=== PATIENT | female | born 1980 | race Caucasian/White ===

== ENCOUNTER → 2018-05-14 | Outpatient (CLI) | payer MEDICAID ==
--- NOTE | 2018-05-14 19:32 | RADIOLOGY REPORT (SQ) ---
EXAM DESCRIPTION: MRI LUMBAR SPINE WITHOUT COMPLETED DATE/TIME: 05/14/2018 6:00 pm REASON FOR STUDY: LOW BACK PAIN M54.5 LOW BACK PAIN COMPARISON: None. TECHNIQUE: Sagittal and Axial imaging includes T1, T2, STIR and gradient echo sequences. Coronal T2/ HASTE imaging. LIMITATIONS: Some of the sequences are limited by motion artifact. This is mild. Generally good qu ality study otherwise. FINDINGS: VISUALIZED UPPER ABDOMEN: Limited evaluation. No acute or suspicious findings suggested. SEGMENTATION: No transitional anatomy. The lowest well-developed disc space is labeled L5-S1. ALIGNMENT: Scoliosis. No significant listhesis. VERTEBRAE: Intact. BONE MARROW: Normal. DISC SIGNAL: Disc height loss at L3-4. POSTERIOR ELEMENTS: No pars defect evident. HARDWARE: Dorsal rods and screws span L4-5. CORD AND CONUS: Normal in size and signal intensity. Conus at the appropriate level. SOFT TISSUES: No aortic aneurysm seen. No bulky retroperitoneal adenopathy or mass. No paraspinal mas s or fluid. L1-L2: Mild left lateral recess and left foraminal encroachment. L2-L3: Mild facet overgrowth with slight central canal narrowing overall. Minimal left foraminal emil rowing. L3-L4: Mild facet overgrowth. No significant central stenosis. Mild right foraminal narrowing. L4-L5: Operative level is without stenosis. L5-S1: No significant spinal stenosis or exit foraminal stenosis. LOWER THORACIC: Disc disease at T10-11. No humberto cord compression. Limited assessment. SACRUM: Visualized upper sacrum intact. OTHER: No other significant findings. IMPRESSION: 1. Postoperative and degenerative changes without high-grade stenosis or fracture. Scol iosis. TECHNICAL DOCUMENTATION: JOB ID: [id number] [email or web address]- All Rights Reserved Reading location - IP/workstation name: [email or web address]
== END ==
LOC: RAD 16:54
PROVIDERS: ATTEND Family Medicine
DX: M54.5 Low back pain (principal)
CPT/HCPCS: 72148

== ENCOUNTER 2019-02-18 00:38 | Emergency (ER) | payer MEDICAID ==
[2019-02-18] MEDS ORDERED: ONDANSETRON 4 MG TAB.RAPDIS PO ONE (00:43)
--- NOTE | 2019-02-18 00:44 | ER Document Report ---
ED Medical Screen (RME) - General Chief Complaint: Flank Pain Stated Complaint: FLANK PAIN Time Seen by Provider: 02/18/19 00:41 Primary Care Provider: JASWINDER BURDEN DO [Primary Care Provider] - Follow up as needed Mode of Arrival: Wheelchair Information source: Patient Notes: 38-year-old female presented to ED for left flank pain times a week. She states she is been nauseated all week but no vomiting. She states her only medical history is and back surgery. She states her doctor did a whole panel recently and everything was negative so she is not sure why she is hurting. Patient is alert oriented respirations regular and unlabored speaking in full sentences. I have greeted and performed a rapid initial assessment of this patient. A comprehensive ED assessment and evaluation of the patient, analysis of test results and completion of medical decision making process will be conducted by an additional ED providers. TRAVEL OUTSIDE OF THE [place] IN LAST 30 DAYS: No - Related Data Allergies/Adverse Reactions: No Known Allergies Allergy (Unverified 02/18/19 00:41) Doctor's Discharge - Discharge Referrals: JASWINDER BURDEN DO [Primary Care Provider] - Follow up as needed
[2019-02-18] MEDS ORDERED: OXYCODONE-ACETAMINOPHEN 5-325 MG TABLET PO ONE (01:22)
[2019-02-18 01:26] LABS: ABSOLUTE BASOPHILS # (AUTO) 0.1 10^3/uL (0.0-0.2); ABSOLUTE EOSINOPHILS # (AUTO) 0.1 10^3/uL (0.0-0.6); ABSOLUTE LYMPHOCYTES (AUTO) 3.3 10^3/uL (0.5-4.7); ABSOLUTE MONOCYTES (AUTO) 0.5 10^3/uL (0.1-1.4); ABSOLUTE NEUT (AUTO) 5.6 10^3/uL (1.7-8.2); BASOPHILS % (AUTO) 0.6 % (0-2); EOSINOPHILS % (AUTO) 1.5 % (0-6); HEMATOCRIT 39.9 % (36.0-47.0); HEMOGLOBIN 13.9 g/dL (12.0-15.5); LYMPHOCYTES % (AUTO) 34.2 % (13-45); MEAN CORPUSCULAR HEMOGLOBIN 31.1 pg (27.0-33.4); MEAN CORPUSCULAR VOLUME 89 fl (80-97); MONOCYTES % (AUTO) 5.4 % (3-13); PLATELET COUNT 291 10^3/uL (150-450); RED BLOOD COUNT 4.49 10^6/uL (3.72-5.28); RED CELL DISTRIBUTION WIDTH 13.4 % (11.5-14.0); SEGMENTED NEUTROPHILS % (AUTO) 58.3 % (42-78); TOTAL CELLS COUNTED % (AUTO) 100 %; WHITE BLOOD COUNT 9.6 10^3/uL (4.0-10.5)
[2019-02-18 01:29] LABS: APPEARANCE,URINE SLIGHTLY-CLOUDY; BILIRUBIN,URINE NEGATIVE (NEGATIVE); COLOR,URINE YELLOW; GLUCOSE, URINE NEGATIVE (NEGATIVE); KETONES,URINE NEGATIVE (NEGATIVE); LEUKOCYTE ESTERASE,URINE NEGATIVE (NEGATIVE); NITRITE,URINE NEGATIVE (NEGATIVE); PROTEIN,URINE NEGATIVE (NEGATIVE); URINE SPECIFIC GRAVITY 1.018
--- NOTE | 2019-02-18 01:37 | ER Document Report ---
ED GI/ - General Chief Complaint: Flank Pain Stated Complaint: FLANK PAIN Time Seen by Provider: 02/18/19 00:41 Primary Care Provider: JASWINDER BURDEN DO [ACTIVE STAFF] - Follow up as needed Mode of Arrival: Wheelchair Notes: Patient is a 38 year old female that comes to the Emergency Department for chief complaint of left flank pain with some radiation to the left side. Symptoms started out mild at first and have worsened. Patient has developed nausea but she denies vomiting. She denies fever/chills. She states that she seems to have some relief with urination at times but does not have dysuria. She denies vaginal bleeding or discharge. Past medical history includes C-sections and lumbar fusion, she denies numbness, she denies incontinence, she denies history of IV drug abuse. TRAVEL OUTSIDE OF THE [place] IN LAST 30 DAYS: No - Related Data Allergies/Adverse Reactions: No Known Allergies Allergy (Unverified 02/18/19 00:41) Past Medical History - General Information source: Patient - Social History Smoking Status: Never Smoker Frequency of alcohol use: None Drug Abuse: None Lives with: Family Family History: Reviewed & Not Pertinent - Medical History Medical History: Negative Surgical Hx: Negative - Immunizations Immunizations up to date: Yes Hx Diphtheria, Pertussis, Tetanus Vaccination: Yes Review of Systems - Review of Systems Constitutional: No symptoms reported EENT: No symptoms reported Cardiovascular: No symptoms reported Respiratory: No symptoms reported Gastrointestinal: No symptoms reported Genitourinary: See HPI Female Genitourinary: No symptoms reported Musculoskeletal: See HPI Skin: No symptoms reported Hematologic/Lymphatic: No symptoms reported Neurological/Psychological: No symptoms reported Physical Exam - Vital signs Vitals: Temp Pulse Resp BP Pulse Ox 99.1 F 89 18 119/70 97 02/18/19 00:43 02/18/19 00:43 02/18/19 00:43 02/18/19 00:43 02/18/19 00:43 - Notes Notes: GENERAL: Somewhat uncomfortable, sitting on the edge of the bed upright HEAD: Normocephalic, atraumatic. EYES: Pupils equal, round, and reactive to light. Extraocular movements intact. ENT: Oral mucosa moist, tongue midline. Oropharynx unremarkable. Airway patent. Nares patent, no nasal septal hematoma, TM's intact. NECK: Full range of motion. Supple. Trachea midline. LUNGS: Clear to auscultation bilaterally, no wheezes, rales, or rhonchi. No respiratory distress. HEART: Regular rate and rhythm. No murmur ABDOMEN: Soft, non-tender. Non-distended. Bowel sounds present in all 4 quadrants. GENITOURINARY: Deferred EXTREMITIES: Moves all 4 extremities spontaneously. No edema, normal radial and dorsalis pedis pulses bilaterally. No cyanosis. BACK: Tenderness along the left lumbar paraspinal musculatures down towards the gluteal area. Minimal tenderness along the thoracic area as well. No cervical, thoracic, lumbar midline tenderness. Positive straight leg raise on the left, no saddle anesthesia, normal distal neurovascular exam. NEUROLOGICAL: Alert and oriented x3. Normal speech. Cranial nerves II through XII grossly intact. PSYCH: Normal affect, normal mood. SKIN: Warm, dry, normal turgor. No rashes or lesions noted. Course - Re-evaluation Re-evalutation: Patient appears uncomfortable, has back pain on palpation, positive straight leg raise. Appears to be more musculoskeletal in origin. CBC, chemistry, urinalysis reviewed and unremarkable. Vital signs unremarkable. No history of IV drug abuse, no neurological deficits. Patient does have chronic back pain, cervical fusion history, she states that tomorrow she is supposed to be seen and have back injections because of ongoing back pain. Patient is already on Flexeril at home. As result she will be given diazepam for muscle relaxant for spasm instead. Given Toradol as well. Patient states she will follow-up tomorrow, discussed treatment, discussed return precautions in detail. Patient and significant other state understanding and agreement. - Vital Signs Vital signs: Temp Pulse Resp BP Pulse Ox 99.1 F 82 18 117/69 97 02/18/19 00:43 02/18/19 03:01 02/18/19 03:01 02/18/19 03:01 02/18/19 03:01 - Laboratory Result Diagrams: 02/18/19 01:04 02/18/19 01:04 Laboratory results interpreted by me: 02/18/19 01:04 Urine Urobilinogen 4.0 H Urine Ascorbic Acid 20 H Discharge - Discharge Clinical Impression: Flank pain Condition: Stable Disposition: HOME, SELF-CARE Additional Instructions: Your evaluation is most consistent with muscle spasm in your lower back, your laboratory work-up does not show any concerning findings. Take diazepam as prescribed as muscle relaxer, apply heat to the area, do gentle stretches, rest. Follow-up closely with your specialist for additional treatment as discussed. Return if you worsen including new numbness, accidental bowel movements, inability to urinate, fever, or any other concerning or worsening symptoms. Prescriptions: Diazepam [Valium 5 mg Tablet] 1 - 2 tab PO TID PRN #12 tablet PRN Reason: Referrals: JASWINDER BURDEN DO [ACTIVE STAFF] - Follow up as needed
[2019-02-18] MEDS ORDERED: KETOROLAC TROMETHAMINE 60 MG/2 ML SDV IM ONE (02:03)
[2019-02-18 02:04] LABS: ALANINE AMINOTRANSFERASE 37 U/L (9-52); ALBUMIN 4.4 g/dL (3.5-5.0); ALKALINE PHOSPHATASE 81 U/L (38-126); ANION GAP 8 (5-19); ASPARTATE AMINO TRANSFERASE 30 U/L (14-36); BILIRUBIN,DIRECT 0.3 mg/dL (0.0-0.4); BILIRUBIN,TOTAL 0.3 mg/dL (0.2-1.3); BLOOD UREA NITROGEN 20 mg/dL (7-20); CALCIUM 9.4 mg/dL (8.4-10.2); CARBON DIOXIDE 29 mmol/L (22-30); CHLORIDE 100 mmol/L (98-107); GLUCOSE 88 mg/dL (75-110); POTASSIUM 3.9 mmol/L (3.6-5.0); TOTAL PROTEIN 7.2 g/dL (6.3-8.2)
[2019-02-18] MEDS ORDERED: DIAZEPAM INJ 10 MG/2 ML DISP.SYRIN IM ONE (02:34)
[2019-02-18 03:02] VITALS: BP 117/69
== END 2019-02-18 03:01 | disposition home or self-care (01) ==
LOC: ER 00:38
DX: R10.9 Unspecified abdominal pain (principal)
CPT/HCPCS: 99284; 96372; 36415; 85025; 81025; 80053; 81001; J3360; J1885; S0119

== ENCOUNTER 2020-05-29 05:09 | Day surgery (SDC) | payer MEDICAID ==
[2020-05-29 05:58] LABS: ABSOLUTE EOSINOPHILS # (AUTO) 0.1 10^3/uL (0.0-0.6); ABSOLUTE LYMPHOCYTES (AUTO) 2.6 10^3/uL (0.5-4.7); ABSOLUTE MONOCYTES (AUTO) 0.7 10^3/uL (0.1-1.4); ABSOLUTE NEUT (AUTO) 11.1 10^3/uL (1.7-8.2); BASOPHILS % (AUTO) 0.2 % (0-2); EOSINOPHILS % (AUTO) 0.8 % (0-6); HEMATOCRIT 37.1 % (36.0-47.0); HEMOGLOBIN 12.7 g/dL (12.0-15.5); LYMPHOCYTES % (AUTO) 17.8 % (13-45); MEAN CORPUSCULAR HEMOGLOBIN 30.3 pg (27.0-33.4); MEAN CORPUSCULAR HGB CONC 34.1 g/dL (32.0-36.0); MEAN CORPUSCULAR VOLUME 89 fl (80-97); PLATELET COUNT 270 10^3/uL (150-450); RED BLOOD COUNT 4.18 10^6/uL (3.72-5.28); RED CELL DISTRIBUTION WIDTH 12.9 % (11.5-14.0); SEGMENTED NEUTROPHILS % (AUTO) 76.2 % (42-78); TOTAL CELLS COUNTED % (AUTO) 100 %; WHITE BLOOD COUNT 14.5 10^3/uL (4.0-10.5)
[2020-05-29 06:18] LABS: ALKALINE PHOSPHATASE 65 U/L (38-126); ANION GAP 7 (5-19); ASPARTATE AMINO TRANSFERASE 19 U/L (14-36); BILIRUBIN,TOTAL 0.7 mg/dL (0.2-1.3); BLOOD UREA NITROGEN 10 mg/dL (7-20); CALCIUM 9.1 mg/dL (8.4-10.2); CARBON DIOXIDE 27 mmol/L (22-30); CHLORIDE 99 mmol/L (98-107); GLUCOSE 124 mg/dL (75-110); POTASSIUM 3.4 mmol/L (3.6-5.0); TOTAL PROTEIN 6.8 g/dL (6.3-8.2)
[2020-05-29] MEDS ORDERED: ONDANSETRON HCL INJ/PF 4 MG/2 ML SDV IV ONE (08:09)
[2020-05-29] MEDS ORDERED: NORMAL SALINE 1000 ML 1,000 ML IV ONE (08:09)
[2020-05-29] MEDS ORDERED: RINGERS SOLUTION,LACTATED 1,000 ML IV ONE (08:10)
[2020-05-29 08:19] LABS: APPEARANCE,URINE SLIGHTLY-CLOUDY; BILIRUBIN,URINE NEGATIVE (NEGATIVE); COLOR,URINE YELLOW; GLUCOSE, URINE NEGATIVE (NEGATIVE); KETONES,URINE NEGATIVE (NEGATIVE); LEUKOCYTE ESTERASE,URINE NEGATIVE (NEGATIVE); NITRITE,URINE NEGATIVE (NEGATIVE); PROTEIN,URINE NEGATIVE (NEGATIVE); URINE SPECIFIC GRAVITY 1.015; UROBILINOGEN,URINE NEGATIVE mg/dL (<2.0)
[2020-05-29 08:33] LABS: URINE AMPHETAMINES SCREEN NEGATIVE; URINE BARBITURATES SCREEN NEGATIVE; URINE BENZODIAZEPINES SCREEN NEGATIVE; URINE COCAINE SCREEN NEGATIVE; URINE METHADONE SCREEN NEGATIVE; URINE PHENCYCLIDINE SCREEN NEGATIVE
[2020-05-29 08:36] LABS: URINE MARIJUANA (THC) SCREEN UNCONFIRMED POSITIVE
[2020-05-29] MEDS ORDERED: KETOROLAC TROMETHAMINE 60 MG/2 ML SDV ONE (08:54)
[2020-05-29] MEDS ORDERED: SUCCINYLCHOLINE CHLORIDE INJ 200 MG/10 ML VIAL ONE (08:54)
[2020-05-29] MEDS ORDERED: DEXAMETHASONE SOD PHOSPHATE INJ 4 MG/1 ML VIAL ONE (08:54)
[2020-05-29] MEDS ORDERED: ONDANSETRON HCL INJ/PF 4 MG/2 ML SDV ONE (08:54)
[2020-05-29] MEDS ORDERED: ROCURONIUM BROMIDE INJ 50 MG/5 ML VIAL IV ONE (08:54)
--- NOTE | 2020-05-29 09:54 | ER Document Report ---
Entered by SCOTT RAMIREZ SCRIBE 05/29/20 0806 Acting as scribe for:RAISSA RODRIGUEZ MD ED GI/ - General Chief Complaint: Abdominal Problem Stated Complaint: FLANK PAIN Time Seen by Provider: 05/29/20 07:48 Primary Care Provider: SALVADOR ROSARIO FNP-C [Primary Care Provider] - Follow up as needed Mode of Arrival: Ambulatory Information source: Patient Notes: This 39 year old female patient on suboxone since 2008 presents to the emergency department today with complaints of abdominal pain with associated distension since around noon yesterday. She reports she last took her suboxone at 1am this morning. Patient has had nausea without vomiting. She complaints of dysuria described as a "pulling" sensation. TRAVEL OUTSIDE OF THE [place] IN LAST 30 DAYS: No - Related Data Allergies/Adverse Reactions: No Known Allergies Allergy (Unverified 02/18/19 00:41) Home Medications: gabapentin, suboxone, flexeril, lisinopril, HCTZ Past Medical History - General Information source: Patient - Social History Smoking Status: Current Every Day Smoker Cigarette use (# per day): Yes - 1 ppd Frequency of alcohol use: Occasional Drug Abuse: None Lives with: Family Family History: Reviewed & Not Pertinent Patient has homicidal ideation: No - Past Medical History Cardiac Medical History: Reports: Hx Hypertension Pulmonary Medical History: Reports: Hx Asthma Musculoskeletal Medical History: Reports Hx Fibromyalgia Past Surgical History: Reports: Hx Section - x3, Hx Orthopedic Surgery - L4-L5 fusion in 2008 - Immunizations Immunizations up to date: Yes Hx Diphtheria, Pertussis, Tetanus Vaccination: Yes Review of Systems - Review of Systems Constitutional: See HPI, Other - last took suboxone at 1am EENT: No symptoms reported Cardiovascular: No symptoms reported Respiratory: No symptoms reported Gastrointestinal: See HPI, Abdomen distended, Abdominal pain, Nausea. denies: Vomiting Genitourinary: See HPI, Dysuria - "pulling sensation" Female Genitourinary: No symptoms reported Musculoskeletal: No symptoms reported Skin: No symptoms reported Hematologic/Lymphatic: No symptoms reported Neurological/Psychological: No symptoms reported -: Yes All other systems reviewed and negative Physical Exam - Vital signs Vitals: Temp Pulse Resp BP Pulse Ox 98.8 F 129 H 20 121/68 94 05/29/20 05:14 05/29/20 05:14 05/29/20 05:14 05/29/20 05:14 05/29/20 05:14 - HEENT Head: Normocephalic, Atraumatic Eyes: Normal Pupils: PERRL - Respiratory Respiratory status: No respiratory distress Breath sounds: Other - Coarse breath sounds with some rhonchi consistent with her smoking history. - Cardiovascular Rhythm: Regular, Tachycardia Heart sounds: Normal auscultation Murmur: No - Abdominal Inspection: Obese Distension: Distended Bowel sounds: Hypoactive Tenderness: Tender - Patient complains of diffuse tenderness, however on exam she does seem to localize in the right lower quadrant, with guarding and mild rebound. - Back Back: Tender - Extremities General upper extremity: Normal inspection General lower extremity: Normal inspection - Neurological Neuro grossly intact: Yes - Psychological Associated symptoms: Normal affect, Normal mood - Skin Skin Temperature: Warm Skin Moisture: Dry Skin Color: Normal Course - Re-evaluation Re-evalutation: 05/29/20 11:[address] scan shows acute appendicitis. Patient reports she had her last meal probably sometimes yesterday. Less oral intake she initially stated was at 2 AM, then she stated about 1 hour ago she drank a little water from the bottle of her spouse's water bottle what she describes as perhaps 30-60 mL's of water. She stated her mouth felt so dry that she had to have something. She is asking not to drink anything else. - Vital Signs Vital signs: Temp Pulse Resp BP Pulse Ox 98.4 F 99 16 101/55 L 94 05/29/20 14:50 05/29/20 14:50 05/29/20 14:50 05/29/20 14:50 05/29/20 14:50 - Laboratory Result Diagrams: 05/29/20 05:41 05/29/20 05:41 Laboratory results interpreted by me: 05/29/20 05/29/20 05:41 05:41 WBC 14.5 H Absolute Neuts (auto) 11.1 H Sodium 132.8 L Potassium 3.4 L Glucose 124 H - Diagnostic Test Radiology reviewed: Reports reviewed - CT scan abdomen pelvis shows acute appendicitis - Consults Dr. Khanna Time consulted: 11:36 Consulted provider: will come to ER Discharge - Discharge Clinical Impression: Hyponatremia, Opioid dependence on agonist therapy Acute appendicitis Qualifiers: Acute appendicitis type: with localized peritonitis Appendicitis gangrene presence: unspecified whether gangrene present Appendicitis perforation presence: without perforation Appendicitis abscess presence: without abscess Qualified Code(s): K35.30 - Acute appendicitis with localized peritonitis, without perforation or gangrene Leukocytosis Qualifiers: Leukocytosis type: unspecified Qualified Code(s): D72.829 - Elevated white blood cell count, unspecified Chronic low back pain Qualifiers: Back pain laterality: unspecified Sciatica presence: unspecified whether sciatica present Qualified Code(s): M54.5 - Low back pain Condition: Stable Disposition: ADMITTED INPATIENT Admitting Provider: Surgicalist Unit Admitted: Surgical Floor Referrals: SALVADOR ROSARIO FNP-C [Primary Care Provider] - Follow up as needed I personally performed the services described in the documentation, reviewed and edited the documentation which was dictated to the scribe in my presence, and it accurately records my words and actions.
[2020-05-29] MEDS ORDERED: PIPERACILLIN/TAZOBACTAM 3.375 GM VIAL IV ONE (09:57)
[2020-05-29] MEDS ORDERED: MORPHINE SULFATE 10 MG/ML INJ IV ONE (09:58)
--- NOTE | 2020-05-29 11:18 | RADIOLOGY REPORT (SQ) ---
EXAM DESCRIPTION: CT ABD/PELVIS WITH IV ONLY IMAGES COMPLETED DATE/TIME: 05/29/2020 10:47 am REASON FOR STUDY: RLQ abd pain, bloating, leukocytosis COMPARISON: None. TECHNIQUE: CT scan of the abdomen and pelvis performed using helical scanning technique with dynamic intravenous contrast injection. No oral contrast. Images reviewed with lung, soft tissue, and bone windows. Reconstructed coronal and sagittal MPR images reviewed. Delayed images for evaluation of the urinary system also acquired. All images stored on PACS. All CT scanners at this facility use dose modulation, iterative reconstruction, and/or weight based d osing when appropriate to reduce radiation dose to as low as reasonably achievable (ALARA). [facility]: Dose Right [facility]: CareDose [facility]: Dose Right [facility]: Teradose 4D [facility]: [employer] CONTRAST TYPE AND DOSE: contrast/concentration: Isovue 350.00 mmol/ml; Total Contrast Delivered: 100 .0 ml; Total Saline Delivered: 72.0 ml RENAL FUNCTION: BUN 10 creatinine 0.62. RADIATION DOSE: CT Rad equipment meets quality standard of care and radiation dose reduction techniq ues were employed. CTDIvol: 17.7 - 20.0 mGy. DLP: 1848 mGy-cm.. LIMITATIONS: None. FINDINGS: LOWER CHEST: No significant findings. No nodules or infiltrates. LIVER: Normal size. No masses. No dilated ducts. SPLEEN: Normal size. No focal lesions. PANCREAS: No masses. No significant calcifications. No adjacent inflammation or peripancreatic fluid collections. Pancreatic duct not dilated. GALLBLADDER: No identified stones by CT criteria. No inflammatory changes to suggest cholecystitis. ADRENAL GLANDS: No significant masses or asymmetry. RIGHT KIDNEY AND URETER: No solid masses. No significant calcifications. No hydronephrosis or hyd roureter. LEFT KIDNEY AND URETER: No solid masses. No significant calcifications. No hydronephrosis or hydr oureter. AORTA AND VESSELS: No aneurysm. No dissection. Renal arteries, SMA, celiac without stenosis. RETROPERITONEUM: No retroperitoneal adenopathy, hemorrhage or masses. BOWEL AND PERITONEAL CAVITY: No masses or inflammatory changes. No free fluid or peritoneal masses. APPENDIX: Indistinct thickened appearance. Marked inflammatory stranding in the periappendiceal soft tissues. No abnormal gas or fluid collection. PELVIS: No mass. No free fluid. Normal bladder. ABDOMINAL WALL: No masses. Lower abdominal wall midline hernia containing fat. BONES: Degenerative changes in the lumbar spine with marked scoliosis. Surgical changes and hardware . OTHER: No other significant finding. IMPRESSION: 1. ACUTE APPENDICITIS. NO EVIDENCE OF ABSCESS OR PERFORATION. 2. LOWER ABDOMINAL WALL MIDLINE HERNIA CONTAINING FAT. NO INVOLVEMENT OF BOWEL. 3. NO OTHER SIGNIFICANT OR ACUTE FINDING IN THE ABDOMEN OR PELVIS ON CT SCAN WITH IV CONTRAST. TECHNICAL DOCUMENTATION: JOB ID: [id number] Quality ID # [id number]: Final reports with documentation of one or more dose reduction techniques (e.g., Au tomated exposure control, adjustment of the mA and/or kV according to patient size, use of iterative reconstruction technique) 2010 [employer]- All Rights Reserved Reading location - IP/workstation name: [email or web address]
--- NOTE | 2020-05-29 12:30 | PDOC H&P ---
History of Present Illness Admission Date/PCP: IDA BRUSH Patient complains of: Abdominal pain History of Present Illness: QUITA FRAUSTO is a 39 year old female With long history of chronic lower back pain presenting now with 24-hour history of lower abdominal pain mostly in the right lower quadrant. Patient notes that the pain has worsened since yesterday. She denies any nausea or vomiting no diarrhea no fever. She denies any prior history of this sort of pain. Past Medical History Cardiac Medical History: Reports: Hypertension Pulmonary Medical History: Reports: Asthma Musculoskeltal Medical History: Reports: Fibromyalgia Past Surgical History Past Surgical History: Reports: Section - x3, Orthopedic Surgery - L4- L5 fusion in 2008 Social History Lives with: Family Smoking Status: Current Every Day Smoker Electronic Cigarette use?: No Frequency of Alcohol Use: None Hx Recreational Drug Use: No Hx Prescription Drug Abuse: Yes - Patient has been on Suboxone for the past 10 years Family History Family History: Reviewed & Not Pertinent Parental Family History Reviewed: Yes Children Family History Reviewed: Yes Sibling(s) Family History Reviewed.: Yes Medication/Allergy Home Medications: Diazepam [Valium 5 mg Tablet] 1 - 2 tab PO TID PRN #12 tablet 02/18/19 Allergies/Adverse Reactions: No Known Allergies Allergy (Unverified 02/18/19 00:41) Review of Systems All systems: reviewed and no additional remarkable complaints except as stated Constitutional: PRESENT: as per HPI Gastrointestinal: PRESENT: as per HPI Physical Exam Vital Signs: Temp Pulse Resp BP Pulse Ox 98.2 F 102 H 15 121/62 99 05/29/20 09:28 05/29/20 09:28 05/29/20 09:28 05/29/20 09:28 05/29/20 09:28 Intake & Output 05/28/20 05/29/20 05/30/20 06:59 06:59 06:59 Intake Total 1000 Balance 1000 Weight 105.2 kg General appearance: PRESENT: cooperative, mild distress Eye exam: PRESENT: conjunctiva pink Respiratory exam: PRESENT: clear to auscultation frank Cardiovascular exam: PRESENT: RRR GI/Abdominal exam: PRESENT: other - Obese, mild diffuse abdominal tenderness. Marked tenderness in the right lower quadrant with voluntary guarding. Sense of fullness at the midline in the lower abdomen consistent with a hernia. Neurological exam: PRESENT: alert, awake Psychiatric exam: PRESENT: agitated Skin exam: PRESENT: warm Results Laboratory Results: 05/29/20 05:41 05/29/20 05:41 05/29/20 05/29/20 05/29/20 05:41 05:41 05:41 WBC 14.5 H RBC 4.18 Hgb 12.7 Hct 37.1 MCV 89 MCH 30.3 MCHC 34.1 RDW 12.9 Plt Count 270 Seg Neutrophils % 76.2 Sodium 132.8 L Potassium 3.4 L Chloride 99 Carbon Dioxide 27 Anion Gap 7 BUN 10 Creatinine 0.62 Est GFR ( Amer) > 60 Glucose 124 H Calcium 9.1 Total Bilirubin 0.7 AST 19 Alkaline Phosphatase 65 Total Protein 6.8 Albumin 4.0 Lipase 23.9 Serum HCG, Qual NEGATIVE Urine Color Urine Appearance Urine pH Ur Specific [place] Urine Protein Urine Glucose (UA) Urine Ketones Urine Blood Urine Nitrite Ur Leukocyte Esterase Urine WBC (Auto) Urine RBC (Auto) 05/29/20 07:46 WBC RBC Hgb Hct MCV MCH MCHC RDW Plt Count Seg Neutrophils % Sodium Potassium Chloride Carbon Dioxide Anion Gap BUN Creatinine Est GFR ( Amer) Glucose Calcium Total Bilirubin AST Alkaline Phosphatase Total Protein Albumin Lipase Serum HCG, Qual Urine Color YELLOW Urine Appearance SLIGHTLY-CLOUDY Urine pH 6.0 Ur Specific [place] 1.015 Urine Protein NEGATIVE Urine Glucose (UA) NEGATIVE Urine Ketones NEGATIVE Urine Blood NEGATIVE Urine Nitrite NEGATIVE Ur Leukocyte Esterase NEGATIVE Urine WBC (Auto) 0 Urine RBC (Auto) 2 Impressions: Abdomen/Pelvis CT 05/29/20 09:56 IMPRESSION: 1. ACUTE APPENDICITIS. NO EVIDENCE OF ABSCESS OR PERFORATION. 2. LOWER ABDOMINAL WALL MIDLINE HERNIA CONTAINING FAT. NO INVOLVEMENT OF BOWEL. 3. NO OTHER SIGNIFICANT OR ACUTE FINDING IN THE ABDOMEN OR PELVIS ON CT SCAN WITH IV CONTRAST. Assessment & Plan - Diagnosis (1) Acute appendicitis Qualifiers: Acute appendicitis type: with localized peritonitis Appendicitis gangrene presence: unspecified whether gangrene present Appendicitis perforation presence: without perforation Appendicitis abscess presence: without abscess Qualified Code(s): K35.30 - Acute appendicitis with localized peritonitis, without perforation or gangrene Is this a current diagnosis for this admission?: Yes Plan: Plan laparoscopic appendectomy. Patient with incidental chronic lower midline hernia without bowel involvement which will be left alone if possible. She will need mesh repair after she has had recovery from her laparoscopic appendectomy. I have discussed with the patient the risk and benefits of the laparoscopic appendectomy including risk of mistaken diagnosis, infection, bleeding, adjacent structure injury, stump leak, possibility of a larger incision depending on the difficulty of the surgery. There is even a possibility that I will need to go through the lower midline hernia and thus require a primary repair of the hernia at the end of the case with high risk of hernia recurrence. She understands and agrees to proceed with laparoscopic appendectomy. - Time Critical Time spent with patient: 25-34 minutes Anticipated Discharge Disposition: Home, Self Care Anticipated Discharge Timeframe: within 48 hours
[2020-05-29] MEDS ORDERED: NICOTINE 7 MG/24 HR PATCH.TD24 TD ONE (13:17)
[2020-05-29] MEDS ORDERED: BUPIVACAINE HCL 0.25 % INJ/PF (2.5 MG/1 ML) 30 ML VIAL ONE (13:28)
[2020-05-29] MEDS ORDERED: NORMAL SALINE 1000 ML 1,000 ML IV PRN ×2 (16:35→18:19)
[2020-05-29] MEDS ORDERED: FENTANYL CITRATE INJ/PF 250 MCG/5 ML AMPULE ONE (16:53)
[2020-05-29] MEDS ORDERED: MIDAZOLAM 2 MG/2 ML INJ ONE (16:53)
[2020-05-29] MEDS ORDERED: MORPHINE SULFATE 10 MG/ML INJ ONE (17:20)
[2020-05-29] MEDS ORDERED: SUGAMMADEX SODIUM 200 MG/2 ML SDV IV ONE (18:00)
[2020-05-29] MEDS ORDERED: OXYCODONE-ACETAMINOPHEN 5-325 MG TABLET PO PRN ×2 (18:07)
[2020-05-29] MEDS ORDERED: MORPHINE SULFATE 10 MG/ML INJ IV PRN (18:07)
[2020-05-29] MEDS ORDERED: DIPHENHYDRAMINE HCL 50 MG/ML VIAL IV PRN (18:07)
[2020-05-29] MEDS ORDERED: MEPERIDINE HCL/PF INJ 25 MG/1 ML DISP.SYRIN IV PRN (18:07)
[2020-05-29] MEDS ORDERED: FENTANYL CITRATE INJ/PF 100 MCG/2 ML AMPUL IV PRN ×3 (18:07)
[2020-05-29] MEDS ORDERED: PROMETHAZINE HCL INJ 25 MG/1 ML VIAL IV PRN ×2 (18:07)
--- NOTE | 2020-05-29 18:18 | Operative Report ---
Operative Report DATE OF SURGERY: 05/29/20 PREOPERATIVE DIAGNOSIS: Appendicitis. POSTOPERATIVE DIAGNOSIS: Appendicitis. OPERATION: Laparoscopic appendectomy. SURGEON: MERCY ERVIN ANESTHESIA: GA TISSUE REMOVED OR ALTERED: Appendix. COMPLICATIONS: None. ESTIMATED BLOOD LOSS: 10 cc INTRAOPERATIVE FINDINGS: Markedly inflamed nonperforated appendix. Abdominal adhesions extending from the lower abdomen to the upper abdomen. PROCEDURE: Informed consent was obtained. Patient was brought to the operating room and placed on the operating room table in the supine position. After satisfactory induction of general anesthesia patient's abdomen was prepped and draped in usual sterile fashion. A supraumbilical midline incision was made and dissection carried down through the fascia and the peritoneal cavity was entered. I could feel omental adhesions in the surrounding region which was s wept aside gently to allow space for the Richardson trocar. Richardson trocar was inserted and pneumoperitoneum produced with good patient toleration. There was copious amount of midline omental adhesions extending from the lower abdomen to the upper abdomen. The apparent hernia in the lower abdomen consisting of omental herniation was noted. Two 5 mm trochars were placed in the right mid lateral abdomen. No left-sided trochars were placed due to her hernia. A incision was made at the suprapubic location for placement of a 5 mm trocar but with the adhesions I could not safely place the 5 mm trocar under direct vision therefore this site was abandoned. Inflammatory changes were noted around the ileocecal region. The ileum was swept back as was the cecum revealing appendix that was adhered to the surrounding tissue with marked inflammatory changes. But no evidence of perforation. The appendix was gently teased away from the surrounding tissues. The base of the appendix did not appear to be involved with inflammatory changes. A plane was created between the appendix and the mesoappendix at the base of the appendix taking great care to avoid injury to the cecum. The appendix was taken flush with the cecum using a Endo TERENCE stapling device. The mesoappendix was taken using a LigaSure device taking great care to avoid injury to the surrounding bowel. The appendix was placed in Endobag and removed through the Richardson trocar site fascial defect. The operative field was irrigated and irrigant aspirated out. Hemostasis appeared good. All trochars were removed under the direct vision of the laparoscope to ensure hemostasis. The Richardson trocar site fascial defect was closed with interrupted Vicryl sutures. All skin incisions were closed with subcuticular interrupted Monocryl sutures. Marcaine was injected at the port sites. Patient tolerated procedure well with no apparent complications and was taken to the recovery area in stable condition.
[2020-05-29] MEDS ORDERED: ONDANSETRON HCL INJ/PF 4 MG/2 ML SDV IV PRN (18:19)
[2020-05-29] MEDS ORDERED: ACETAMINOPHEN 1,000 MG/100 ML RTUPB IV ONE (18:26)
--- NOTE | 2020-05-29 21:17 | PDOC PROGRESS REPORT ---
Subjective Progress Note for:: 05/29/20 Subjective:: Feels much better after her surgery. Reason For Visit: APPENDICITIS Physical Exam Vital Signs: Temp Pulse Resp BP Pulse Ox 98.3 F 94 18 107/57 L 93 05/29/20 20:20 05/29/20 20:20 05/29/20 20:20 05/29/20 20:20 05/29/20 20:20 Intake & Output 05/28/20 05/29/20 05/30/20 06:59 06:59 06:59 Intake Total 1900 Output Total 1525 Balance 375 Weight 105.2 kg General appearance: PRESENT: no acute distress, cooperative Respiratory exam: PRESENT: clear to auscultation frank Cardiovascular exam: PRESENT: RRR GI/Abdominal exam: PRESENT: other - Soft, nondistended, minimal tenderness. Much improved from her preoperative state. Dressings all intact. Results Laboratory Results: 05/29/20 05:41 05/29/20 05:41 05/29/20 05/29/20 05/29/20 05:41 05:41 05:41 WBC 14.5 H RBC 4.18 Hgb 12.7 Hct 37.1 MCV 89 MCH 30.3 MCHC 34.1 RDW 12.9 Plt Count 270 Seg Neutrophils % 76.2 Sodium 132.8 L Potassium 3.4 L Chloride 99 Carbon Dioxide 27 Anion Gap 7 BUN 10 Creatinine 0.62 Est GFR ( Amer) > 60 Glucose 124 H Calcium 9.1 Total Bilirubin 0.7 AST 19 Alkaline Phosphatase 65 Total Protein 6.8 Albumin 4.0 Lipase 23.9 Serum HCG, Qual NEGATIVE Urine Color Urine Appearance Urine pH Ur Specific [place] Urine Protein Urine Glucose (UA) Urine Ketones Urine Blood Urine Nitrite Ur Leukocyte Esterase Urine WBC (Auto) Urine RBC (Auto) 05/29/20 07:46 WBC RBC Hgb Hct MCV MCH MCHC RDW Plt Count Seg Neutrophils % Sodium Potassium Chloride Carbon Dioxide Anion Gap BUN Creatinine Est GFR ( Amer) Glucose Calcium Total Bilirubin AST Alkaline Phosphatase Total Protein Albumin Lipase Serum HCG, Qual Urine Color YELLOW Urine Appearance SLIGHTLY-CLOUDY Urine pH 6.0 Ur Specific [place] 1.015 Urine Protein NEGATIVE Urine Glucose (UA) NEGATIVE Urine Ketones NEGATIVE Urine Blood NEGATIVE Urine Nitrite NEGATIVE Ur Leukocyte Esterase NEGATIVE Urine WBC (Auto) 0 Urine RBC (Auto) 2 Impressions: Abdomen/Pelvis CT 05/29/20 09:56 IMPRESSION: 1. ACUTE APPENDICITIS. NO EVIDENCE OF ABSCESS OR PERFORATION. 2. LOWER ABDOMINAL WALL MIDLINE HERNIA CONTAINING FAT. NO INVOLVEMENT OF BOWEL. 3. NO OTHER SIGNIFICANT OR ACUTE FINDING IN THE ABDOMEN OR PELVIS ON CT SCAN WITH IV CONTRAST. Assessment & Plan - Diagnosis (1) Acute appendicitis Qualifiers: Acute appendicitis type: with localized peritonitis Appendicitis gangrene presence: unspecified whether gangrene present Appendicitis perforation presence: without perforation Appendicitis abscess presence: without abscess Qualified Code(s): K35.30 - Acute appendicitis with localized peritonitis, without perforation or gangrene Is this a current diagnosis for this admission?: Yes Plan: Status post laparoscopic appendectomy. Patient looks very good. Will start a diet in the morning will likely discharge patient home tomorrow. - Time Anticipated Discharge Disposition: Home, Self Care Anticipated Discharge Timeframe: within 24 hours
[2020-05-29] MEDS: KETOROLAC TROMETHAMINE INJ/PF 30 MG/1 ML SDV IV PRN (22:07)
[2020-05-29] MEDS ORDERED: CYCLOBENZAPRINE HCL 10 MG TABLET PO ONE (23:15)
[2020-05-29] MEDS ORDERED: GABAPENTIN 400 MG CAPSULE PO ONE (23:45)
[2020-05-30 05:18] LABS: HEMATOCRIT 36.2 % (36.0-47.0); HEMOGLOBIN 12.3 g/dL (12.0-15.5); MEAN CORPUSCULAR HEMOGLOBIN 30.2 pg (27.0-33.4); MEAN CORPUSCULAR VOLUME 89 fl (80-97); PLATELET COUNT 238 10^3/uL (150-450); RED BLOOD COUNT 4.08 10^6/uL (3.72-5.28); RED CELL DISTRIBUTION WIDTH 12.7 % (11.5-14.0); WHITE BLOOD COUNT 13.3 10^3/uL (4.0-10.5)
[2020-05-30 05:35] LABS: ANION GAP 7 (5-19); BLOOD UREA NITROGEN 13 mg/dL (7-20); CALCIUM 8.5 mg/dL (8.4-10.2); CARBON DIOXIDE 25 mmol/L (22-30); CHLORIDE 103 mmol/L (98-107); GLUCOSE 110 mg/dL (75-110); POTASSIUM 3.8 mmol/L (3.6-5.0)
[2020-05-30] MEDS: KETOROLAC TROMETHAMINE INJ/PF 30 MG/1 ML SDV IV PRN (05:52)
[2020-05-30] MEDS: CYCLOBENZAPRINE HCL 10 MG TABLET PO SCH ×2 (09:39→13:52)
[2020-05-30] MEDS: GABAPENTIN 400 MG CAPSULE PO SCH ×2 (09:40→13:52)
[2020-05-30] MEDS ORDERED: PIPERACILLIN SODIUM/TAZOBACTAM 3.375 GM in NORMAL SALINE 100 ML IV SCH (10:00)
--- NOTE | 2020-05-30 12:20 | PDOC PROGRESS REPORT ---
Subjective Progress Note for:: 05/30/20 Subjective:: Feels well. No complaints. Reason For Visit: APPENDICITIS Physical Exam Vital Signs: Temp Pulse Resp BP Pulse Ox 97.7 F 93 16 103/62 99 05/30/20 07:51 05/30/20 07:51 05/30/20 07:51 05/30/20 07:51 05/30/20 07:51 Intake & Output 05/29/20 05/30/20 05/31/20 06:59 06:59 06:59 Intake Total 1900 100 Output Total 1525 Balance 375 100 Weight 105.2 kg 109.1 kg General appearance: PRESENT: no acute distress, cooperative Respiratory exam: PRESENT: clear to auscultation frank Cardiovascular exam: PRESENT: RRR GI/Abdominal exam: PRESENT: other - Soft, nondistended, minimal tenderness. Results Laboratory Results: 05/30/20 04:50 05/30/20 04:50 05/30/20 05/30/20 04:50 04:50 WBC 13.3 H RBC 4.08 Hgb 12.3 Hct 36.2 MCV 89 MCH 30.2 MCHC 34.0 RDW 12.7 Plt Count 238 Sodium 135.3 L Potassium 3.8 Chloride 103 Carbon Dioxide 25 Anion Gap 7 BUN 13 Creatinine 0.54 Est GFR ( Amer) > 60 Glucose 110 Calcium 8.5 Impressions: Abdomen/Pelvis CT 05/29/20 09:56 IMPRESSION: 1. ACUTE APPENDICITIS. NO EVIDENCE OF ABSCESS OR PERFORATION. 2. LOWER ABDOMINAL WALL MIDLINE HERNIA CONTAINING FAT. NO INVOLVEMENT OF BOWEL. 3. NO OTHER SIGNIFICANT OR ACUTE FINDING IN THE ABDOMEN OR PELVIS ON CT SCAN WITH IV CONTRAST. Assessment & Plan - Diagnosis (1) Acute appendicitis Qualifiers: Acute appendicitis type: with localized peritonitis Appendicitis gangrene presence: unspecified whether gangrene present Appendicitis perforation presence: without perforation Appendicitis abscess presence: without abscess Qualified Code(s): K35.30 - Acute appendicitis with localized peritonitis, without perforation or gangrene Is this a current diagnosis for this admission?: Yes Plan: Status post laparoscopic appendectomy. Patient looks very good. Will discharge patient home. In light of her leukocytosis will give her couple more days of antibiotics p.o. at home. - Time Critical Time spent with patient: Less than 15 minutes Anticipated Discharge Disposition: Home, Self Care Anticipated Discharge Timeframe: within 24 hours
--- NOTE | 2020-05-30 12:27 | PDOC DISCHARGE SUMMARY ---
General - Admit/Disc Date/PCP Admission Date/Primary Care Provider: 05/29/20 16:51 IDA BRUSH Discharge Date: 05/30/20 - Discharge Diagnosis Final Diagnosis: Appendicitis. - Assessment Summary: Patient underwent laparoscopic appendectomy. Patient did well postoperatively. Was tolerating a diet well at the time of discharge. Her abdominal exam looks good. Patient is now been discharged home in good condition. She may resume her home medications. With the inflammation seen on her appendix and her residual leukocytosis, additional dose of Zosyn was given prior to discharge and prescription was written for Flagyl and Cipro for couple of days. She is to call for any problems such as fever, progressively worsening abdominal pain, vomiting, wound erythema. She is to follow-up at [facility] in 2 weeks. She may shower tomorrow. She may advance her diet as tolerated at home. - Additional Information Resuscitation Status: Full Code Discharge Diet: As Tolerated Discharge Activity: Activity As Tolerated - Stay active but avoid strenuous activity., No Driving - No driving for 5 days. May resume driving when alert and not distracted by any pain or discomfort. Referrals: SALVADOR ROSARIO FNP-C [Primary Care Provider] - Follow up as needed Prescriptions: Ciprofloxacin HCl [Cipro 500 mg Tablet] 500 mg PO BID #4 tablet Metronidazole [Flagyl 500 mg Tablet] 500 mg PO TID #6 tablet Home Medications: Acetaminophen [Tylenol] 325 mg PO QIDP PRN 05/30/20 Albuterol Sulfate [Albuterol Sulfate Hfa] 1 puff IH Q4HP PRN 05/30/20 Aspirin [Aspirin 81 mg Chewable Tablet] 81 mg PO DAILY 05/30/20 Buprenorphine HCl/Naloxone HCl [Suboxone 8 mg-2 mg Sl Film] 1 film SL DAILY 05/30/20 Ciprofloxacin HCl [Cipro 500 mg Tablet] 500 mg PO BID #4 tablet 05/30/20 Cyclobenzaprine HCl [Flexeril 10 mg Tablet] 10 mg PO TIDP PRN 05/30/20 Gabapentin [Neurontin] 800 mg PO QID 05/30/20 Hydrochlorothiazide [Hydrodiuril 25 mg Tablet] 25 mg PO QAM 05/30/20 Ibuprofen [Ibu-200] 300 mg PO TIDP PRN 05/30/20 Lisinopril [Prinivil] 20 mg PO DAILY 05/30/20 Metronidazole [Flagyl 500 mg Tablet] 500 mg PO TID #6 tablet 05/30/20 Ondansetron [Zofran Odt 4 mg Tablet] 4 mg PO DAILYP PRN 05/30/20 Sertraline HCl [Zoloft 50 mg Tablet] 50 mg PO DAILY 05/30/20 Venlafaxine HCl [Venlafaxine HCl ER] 150 mg PO BID 05/30/20 History of Present Illiness History of Present Illness: QUITA FRAUSTO is a 39 year old female With long history of chronic lower back pain presenting now with 24-hour history of lower abdominal pain mostly in the right lower quadrant. Patient notes that the pain has worsened since yesterday. She denies any nausea or vomiting no diarrhea no fever. She denies any prior history of this sort of pain. Physical Exam Vital Signs: Temp Pulse Resp BP Pulse Ox 97.7 F 93 16 103/62 99 05/30/20 07:51 05/30/20 07:51 05/30/20 07:51 05/30/20 07:51 05/30/20 07:51 Intake & Output 05/29/20 05/30/20 05/31/20 06:59 06:59 06:59 Intake Total 1900 100 Output Total 1525 Balance 375 100 Weight 105.2 kg 109.1 kg Results Laboratory Results: WBC 13.3 10^3/uL (4.0-10.5) H 05/30/20 04:50 RBC 4.08 10^6/uL (3.72-5.28) 05/30/20 04:50 Hgb 12.3 g/dL (12.0-15.5) 05/30/20 04:50 Hct 36.2 % (36.0-47.0) 05/30/20 04:50 MCV 89 fl (80-97) 05/30/20 04:50 MCH 30.2 pg (27.0-33.4) 05/30/20 04:50 MCHC 34.0 g/dL (32.0-36.0) 05/30/20 04:50 RDW 12.7 % (11.5-14.0) 05/30/20 04:50 Plt Count 238 10^3/uL (150-450) 05/30/20 04:50 Lymph % (Auto) 17.8 % (13-45) 05/29/20 05:41 [place] % (Auto) 5.0 % (3-13) 05/29/20 05:41 Eos % (Auto) 0.8 % (0-6) 05/29/20 05:41 Baso % (Auto) 0.2 % (0-2) 05/29/20 05:41 Absolute Neuts (auto) 11.1 10^3/uL (1.7-8.2) H 05/29/20 05:41 Absolute Lymphs (auto) 2.6 10^3/uL (0.5-4.7) 05/29/20 05:41 Absolute Monos (auto) 0.7 10^3/uL (0.1-1.4) 05/29/20 05:41 Absolute Eos (auto) 0.1 10^3/uL (0.0-0.6) 05/29/20 05:41 Absolute Basos (auto) 0.0 10^3/uL (0.0-0.2) 05/29/20 05:41 Seg Neutrophils % 76.2 % (42-78) 05/29/20 05:41 Sodium 135.3 mmol/L (137-145) L 05/30/20 04:50 Potassium 3.8 mmol/L (3.6-5.0) 05/30/20 04:50 Chloride 103 mmol/L (98-107) 05/30/20 04:50 Carbon Dioxide 25 mmol/L (22-30) 05/30/20 04:50 Anion Gap 7 (5-19) 05/30/20 04:50 BUN 13 mg/dL (7-20) 05/30/20 04:50 Creatinine 0.54 mg/dL (0.52-1.25) 05/30/20 04:50 Est GFR ( Amer) > 60 (>60) 05/30/20 04:50 Est GFR (MDRD) Non-Af > 60 (>60) 05/30/20 04:50 Glucose 110 mg/dL (75-110) 05/30/20 04:50 Calcium 8.5 mg/dL (8.4-10.2) 05/30/20 04:50 Total Bilirubin 0.7 mg/dL (0.2-1.3) 05/29/20 05:41 Direct Bilirubin 0.0 mg/dL (0.0-0.4) 05/29/20 05:41 Neonat Total Bilirubin Not Reportable 05/29/20 05:41 Neonat Direct Bilirubin Not Reportable 05/29/20 05:41 Neonat Indirect Bili Not Reportable 05/29/20 05:41 AST 19 U/L (14-36) 05/29/20 05:41 ALT 18 U/L (<35) 05/29/20 05:41 Alkaline Phosphatase 65 U/L (38-126) 05/29/20 05:41 Total Protein 6.8 g/dL (6.3-8.2) 05/29/20 05:41 Albumin 4.0 g/dL (3.5-5.0) 05/29/20 05:41 Lipase 23.9 U/L (23-300) 05/29/20 05:41 Serum HCG, Qual NEGATIVE (NEGATIVE) 05/29/20 05:41 Urine Color YELLOW 05/29/20 07:46 Urine Appearance SLIGHTLY-CLOUDY 05/29/20 07:46 Urine pH 6.0 (5.0-9.0) 05/29/20 07:46 Ur Specific [place] 1.015 05/29/20 07:46 Urine Protein NEGATIVE mg/dL (NEGATIVE) 05/29/20 07:46 Urine Glucose (UA) NEGATIVE mg/dL (NEGATIVE) 05/29/20 07:46 Urine Ketones NEGATIVE mg/dL (NEGATIVE) 05/29/20 07:46 Urine Blood NEGATIVE (NEGATIVE) 05/29/20 07:46 Urine Nitrite NEGATIVE (NEGATIVE) 05/29/20 07:46 Urine Bilirubin NEGATIVE (NEGATIVE) 05/29/20 07:46 Urine Urobilinogen NEGATIVE mg/dL (<2.0) 05/29/20 07:46 Ur Leukocyte Esterase NEGATIVE (NEGATIVE) 05/29/20 07:46 Urine WBC (Auto) 0 /HPF 05/29/20 07:46 Urine RBC (Auto) 2 /HPF 05/29/20 07:46 Urine Bacteria (Auto) TRACE /HPF 05/29/20 07:46 Squamous Epi Cells Auto 3 /HPF 05/29/20 07:46 Urine Mucus (Auto) RARE /LPF 05/29/20 07:46 Urine Ascorbic Acid NEGATIVE (NEGATIVE) 05/29/20 07:46 Urine HCG, Qual NEGATIVE (NEGATIVE) 05/29/20 07:46 Urine Opiates Screen NEGATIVE 05/29/20 07:46 Urine Methadone Screen NEGATIVE 05/29/20 07:46 Ur Barbiturates Screen NEGATIVE 05/29/20 07:46 Ur Phencyclidine Scrn NEGATIVE 05/29/20 07:46 Ur Amphetamines Screen NEGATIVE 05/29/20 07:46 U Benzodiazepines Scrn NEGATIVE 05/29/20 07:46 Urine Cocaine Screen NEGATIVE 05/29/20 07:46 U Marijuana (THC) Screen UNCONFIRMED POSITIVE 05/29/20 07:46 SARS-CoV-2 (PCR) NEGATIVE (NEGATIVE) 05/29/20 12:58 Impressions: Abdomen/Pelvis CT 05/29/20 09:56 IMPRESSION: 1. ACUTE APPENDICITIS. NO EVIDENCE OF ABSCESS OR PERFORATION. 2. LOWER ABDOMINAL WALL MIDLINE HERNIA CONTAINING FAT. NO INVOLVEMENT OF BOWEL. 3. NO OTHER SIGNIFICANT OR ACUTE FINDING IN THE ABDOMEN OR PELVIS ON CT SCAN WITH IV CONTRAST.
[2020-05-30 12:40] VITALS: BP 98/62
== END 2020-05-30 14:30 | disposition home or self-care (01) ==
LOC: ER 05:09 → OROUT 16:35 → EH 16:51 → UNDOADMOB 16:51 → 4N 19:21 → EH 19:21 → UNDODISOB 05-30 14:00 → OROUT 05-30 14:30
PROVIDERS: ATTEND Surgery
PROC: 0DTJ4ZZ Resection of Appendix, Percutaneous Endoscopic Approach (ICD-10-PCS; principal; 2020-05-29 15:00)
DX: K35.30 Acute appendicitis with localized peritonitis, without perforation or gangrene (principal); M54.5 Low back pain; G89.29 Other chronic pain; I10 Essential (primary) hypertension; J45.909 Unspecified asthma, uncomplicated; M79.7 Fibromyalgia; E66.9 Obesity, unspecified; K46.9 Unspecified abdominal hernia without obstruction or gangrene; F17.210 Nicotine dependence, cigarettes, uncomplicated; R30.0 Dysuria; R00.0 Tachycardia, unspecified; Z79.82 Long term (current) use of aspirin; Z79.899 Other long term (current) drug therapy; Z98.1 Arthrodesis status
CPT/HCPCS: 99285; 96361; 96375; 96365; 36415 ×2; 87040; 83690; 84703; 85025; 85027; 87635; 81025; 80048; 80053; 81001; 80307; 88304 ×2; 74177; 99140; 00840; 44970; J2250; J3490 ×8; J1100; J1885 ×3; J3010; J2270; J0330; J2405; J7050; J7030; J7120; J2543 ×2; J0131; C9803; 840